=== PATIENT | male | born 1965 | race African-American/Black ===

== ENCOUNTER 2019-07-13 10:49 | Emergency (ER) | payer OTHER ==
[2019-07-13 10:56] VITALS: PULSE 80; TEMP 97.6; BMI 36.9
[2019-07-13] MEDS ORDERED: ACETAMINOPHEN 500 MG TABLET (FP) PO ONE (11:49)
[2019-07-13] MEDS ORDERED: hydrALAZINE HCL 10 MG TABLET PO ONE (11:49)
[2019-07-13] MEDS ORDERED: ACETAMINOPHEN 500 MG TABLET (FP) ONE (11:57)
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
[2019-07-13 13:13] VITALS: BP 166/103
== END 2019-07-13 13:20 | disposition home or self-care (01) ==
LOC: JERFT 10:49
DX: R07.9 Chest pain, unspecified (principal); I10 Essential (primary) hypertension
CPT/HCPCS: 71046-TC-FY; 71101-TC-RT-FY; 99281-25